=== PATIENT | female | born 1960 | race Caucasian/White ===

== ENCOUNTER → 2020-11-18 | Outpatient (CLI) | payer OTHER ==
--- NOTE | 2020-11-18 19:05 | RAD ---
DATE: 11/18/2020 EXAM: DIGITAL SCREEN BILAT W/CAD HISTORY: Screening. COMPARISON: None none available. This is the patient's new baseline exam. This study was interpreted with the benefit of Computerized Aided Detection (CAD). Breast Density: SCATTERED The breast parenchyma shows scattered fibroglandular densities. Breast parenchyma level B. FINDINGS: There is a 5 mm nodule in the upper right breast, 7.5 cm posterior to the nipple on MLO view. There are calcifications in the upper inner right breast middle depth. No suspicious mass or opacifications in the left breast. No architectural distortion. IMPRESSION: Asymmetry in the upper right breast and calcifications in the upper inner right breast. Recommend spot compression and magnification views, and ultrasound if needed. BI-RADS CATEGORY: 0 INCOMPLETE: NEEDS ADDITIONAL IMAGING EVALUATION AND/OR PRIOR MAMMOGRAMS FOR COMPARISON. RECOMMENDED FOLLOW-UP: ADD ADDITIONAL IMAGING PQRS compliance statement: Patient information was entered into a reminder system with a target due date for the next mammogram. Mammography is a sensitive method for finding small breast cancers, but it does not detect them all and is not a substitute for careful clinical examination. A negative mammogram does not negate a clinically suspicious finding and should not result in delay in biopsying a clinically suspicious abnormality. "Our facility is accredited by the [employer] Mamm[employer]."
== END ==
LOC: MAMMO 08:46 → MERGE 08:46
PROVIDERS: ATTEND Internal Medicine
DX: Z12.31 Encounter for screening mammogram for malignant neoplasm of breast (principal)
CPT/HCPCS: 77067

== ENCOUNTER → 2020-11-29 | Outpatient (CLI) | payer OTHER | LOC: MAMMO 08:07 | PROVIDERS: ATTEND Internal Medicine | DX: R92.1 Mammographic calcification found on diagnostic imaging of breast (principal); R92.2 Inconclusive mammogram | CPT/HCPCS: 77065 ==

== ENCOUNTER → 2021-10-30 | Outpatient (CLI) | payer OTHER ==
--- NOTE | 2021-10-31 10:05 | RAD ---
INDICATION: Reason: SEBACEOUS CYST PALPATED X1 MONTH / Spl. Instructions: / History: Lump at chest COMPARISON: None. IMPRESSION: Soft tissue ultrasound: Ultrasound was obtained of the region of lump at the patient's chest near mid line. Closely associated with the skin there is a hypoechoic masslike structure within the subcutaneous sof t tissues measuring approximately 15 x 9 mm with a tract extending towards the skin. The most likely cause would include a skin associated lesion such as sebaceous cyst. The ultrasound appearance is how ever nonspecific in nature and other complex fluid collection such as abscess or hematoma could have this appearance as well. Additionally would obtain a follow-up to ensure that this does not increase to exclude any neoplastic cause given that this is not simple cystic in nature. Electronically signed by: Tanmay Meier MD (10/31/2021 9:36 AM) [id number]
== END ==
LOC: US 15:00
PROVIDERS: ATTEND Internal Medicine
DX: L72.3 Sebaceous cyst (principal)
CPT/HCPCS: 76604

== ENCOUNTER → 2021-11-23 | Outpatient (CLI) | payer OTHER ==
--- NOTE | 2021-11-23 14:50 | RAD ---
EXAMINATION: MG 2D BILAT SCREENING CLINICAL HISTORY: Screening TECHNIQUE: Digital craniocaudal and mediolateral oblique views of the bilateral breasts obtained. COMPARISON: 11/29/2020, 11/18/2020, 04/23/2014 BREAST COMPOSITION: There are scattered areas of fibroglandular density. FINDINGS: No evidence of suspicious mass, calcifications, or areas of architectural distortion. Grouped round c alcifications upper inner quadrant right breast, similar on prior studies dated back to 2013 and ther efore considered benign given duration of stability. IMPRESSION: No mammographic evidence of malignancy. BI-RADS ASSESSMENT: Category 2: Benign RECOMMENDATION: Return for routine bilateral screening mammogram in one year. Patient information is entered into the reminder system with a target due date for the next screening mammogram. "Our facility is accredited by the [employer]ammography [employer]." Electronically signed by: Bryn Rose DO (11/23/2021 2:47 PM) [id number]
== END ==
LOC: MAMMO 12:58
PROVIDERS: ATTEND Internal Medicine
DX: Z12.31 Encounter for screening mammogram for malignant neoplasm of breast (principal)
CPT/HCPCS: 77067